=== PATIENT | male | born 1930 | race Caucasian/White ===

== ENCOUNTER 2021-09-09 12:09 | Inpatient (IN) ==
[2021-09-09] MEDS ORDERED: Naloxone 0.4 MG/ML INJ IVP PRN (14:59)
[2021-09-09] MEDS ORDERED: 0.9 % Sodium Chloride 1,000 ML IVC SCH (15:00)
[2021-09-09] MEDS ORDERED: Ipratropium/Albuterol Neb 3 ML IH PRN (15:02)
[2021-09-09] MEDS ORDERED: *HR* Heparin 5,000 UNIT/ML VIAL IVP PRN ×2 (16:24)
[2021-09-09] MEDS ORDERED: *HR* Heparin 5,000 UNIT/ML VIAL IVP ONE (16:24)
[2021-09-09] MEDS ORDERED: Perflutren Lipid Microsphere 1.3 ML in 0.9 % Sodium Chloride 8.7 ML IVP PRN ×2 (16:25→22:16)
[2021-09-09] MEDS ORDERED: Heparin 25,000UNIT/250ML 1/2NS 25,000 UNIT/250 ML IV.SOLN IVC SCH (16:30)
[2021-09-09 16:37] LABS: Adenovirus Not Detected (Not Detect); Bordetella Pertussis Not Detected (Not Detect); Chlamydophila pneumoniae Not Detected (Not Detect); Coronavirus 229E Not Detected (Not Detect); Coronavirus HKU1 Not Detected (Not Detect); Coronavirus NL63 Not Detected (Not Detect); Coronavirus OC43 Not Detected (Not Detect); Human Metapneumovirus Not Detected (Not Detect); Human Rhinovirus/Enterovirus Not Detected (Not Detect); Influenza A Subtype 2009 H1 Not Detected (Not Detect); Influenza B Not Detected (Not Detect); Mycoplasma pneumoniae Not Detected (Not Detect); Parainfluenza Virus 1 Not Detected (Not Detect); Parainfluenza Virus 2 Not Detected (Not Detect); Parainfluenza Virus 3 Not Detected (Not Detect); Parainfluenza Virus 4 DETECTED (Not Detect); Respiratory Syncytial Virus Not Detected (Not Detect); SARS-CoV-2 Not Detected (Not Detect)
[2021-09-09] MEDS: cefTRIAXone 1,000 MG in Water for inj. (sterile) 10 ML IVP SCH (17:36)
[2021-09-09] MEDS: Famotidine 20 MG TABLET PO SCH (17:36)
[2021-09-09] MEDS: Heparin 25,000 UNIT/250 ML 25,000 UNIT/250 ML IV.SOLN IVC SCH (17:37)
[2021-09-09 18:00] LABS: Hematocrit 32.9 % (37.5-50.1); Hemoglobin 10.1 g/dL (12.9-16.9); Mean Corpuscular HGB Conc 30.7 g/dL (31.6-35.5); Mean Corpuscular Hemoglobin 28.3 pg (28.0-33.3); Mean Corpuscular Volume 92.2 fL (83.0-100.0); Mean Platelet Volume 9.1 fL (9.4-12.4); Platelet Count 193 K/mcL (140-400); Red Blood Count 3.57 M/mcL (4.19-5.50); Red Cell Distribution Width 15.6 % (11.5-14.5); White Blood Count 15.5 K/mcL (4.3-11.1)
[2021-09-09 18:06] LABS: Heparin anti-factor XA UFH 0.64 IU/mL (0.30-0.70); INR 1.3; Prothrombin Time 14.2 Seconds (9.4-12.1)
[2021-09-09] MEDS ORDERED: *HR* HYDROcodone/Acet 10/325 mg TABLET PO PRN (19:52)
[2021-09-09] MEDS: *HR* FentaNYL PATCH 50 MCG PATCH TD SCH (20:46)
[2021-09-09] MEDS: QUEtiapine Fumarate 25 MG TABLET PO SCH (20:46)
[2021-09-09] MEDS: Sennosides 8.6 MG TABLET PO SCH (20:58)
[2021-09-09] MEDS: *HR* OxyCODONE/APAP 10/325 TABLET PO SCH (20:58)
[2021-09-09] MEDS ORDERED: Apixaban 2.5 MG TABLET PO SCH (21:00)
[2021-09-10] MEDS: *HR* Methadone 10 MG TABLET PO SCH ×4 (00:26→23:52)
[2021-09-10] MEDS: *HR* OxyCODONE/APAP 10/325 TABLET PO SCH ×4 (00:27→23:52)
[2021-09-10 00:44] LABS: Basophils % 0.1 %; Hematocrit 32.4 % (37.5-50.1); Hemoglobin 10.3 g/dL (12.9-16.9); Immature Granulocytes % 0.5 % (0-4); Lymphocytes # 1.5 K/mcL (0.6-4.6); Lymphocytes % 8.5 %; Mean Corpuscular HGB Conc 31.8 g/dL (31.6-35.5); Mean Corpuscular Hemoglobin 28.6 pg (28.0-33.3); Monocytes # 0.4 K/mcL (0.0-1.3); Monocytes % 2.4 %; Neutrophils # 15.4 K/mcL (1.6-8.9); Platelet Count 217 K/mcL (140-400); Red Cell Distribution Width 15.5 % (11.5-14.5); Segmented Neutrophils % 88.5 %; White Blood Count 17.3 K/mcL (4.3-11.1)
[2021-09-10 00:51] LABS: Alanine Aminotransferase 11 Units/L (7-52); Albumin 3.4 g/dL (3.5-5.7); Albumin/Globulin Ratio 1.2 (1.1-2.2); Alkaline Phosphatase 62 Units/L (34-104); Aspartate Amino Transferase 29 Units/L (13-39); BUN/Creatinine Ratio 20 (6-26); Bilirubin,Total 0.2 mg/dL (0.3-1.0); Blood Urea Nitrogen 22 mg/dL (8-23); Calcium 8.2 mg/dL (8.6-10.3); Carbon Dioxide 20 mEq/L (23-29); Chloride 108 mEq/L (98-107); Globulin 2.8 g/dL (2.4-3.5); Glucose 133 mg/dL (70-105); Magnesium 2.2 mg/dL (1.6-2.6); Osmolality,Calculated 291 (280-300); Phosphorous 2.8 mg/dL (2.7-4.5); Potassium 4.2 mEq/L (3.5-5.1); Sodium 138 mEq/L (136-145); Total Protein 6.2 g/dL (6.4-8.9); eGFR For African Americans > 60 (> 60); eGFR For Non-African Americans > 60 (> 60)
[2021-09-10] MEDS ORDERED: Regadenoson 0.4 MG/5 ML SYRINGE IVP ONE (06:28)
[2021-09-10] MEDS: *HR* Amiodarone 200 MG TABLET PO SCH (10:13)
[2021-09-10] MEDS: Furosemide 40 MG TABLET PO SCH (10:13)
[2021-09-10] MEDS: lisinopriL 20 MG TABLET PO SCH (10:13)
[2021-09-10] MEDS: atenoloL 25 MG TABLET PO SCH (10:13)
[2021-09-10] MEDS: cefTRIAXone 1,000 MG in Water for inj. (sterile) 10 ML IVP SCH (10:13)
[2021-09-10] MEDS: Famotidine 20 MG TABLET PO SCH ×2 (10:31→15:03)
[2021-09-10] MEDS: Sennosides 8.6 MG TABLET PO SCH ×2 (10:32→21:29)
[2021-09-10] MEDS ORDERED: Nitroglycerin 0.4 MG TAB.SUBL SL PRN (11:59)
[2021-09-10] MEDS ORDERED: cefTRIAXone 1,000 MG in Water for inj. (sterile) 10 ML IVP ONE (11:59)
[2021-09-10] MEDS: QUEtiapine Fumarate 25 MG TABLET PO SCH (21:29)
[2021-09-11] MEDS: Heparin 25,000 UNIT/250 ML 25,000 UNIT/250 ML IV.SOLN IVC SCH (03:48)
[2021-09-11] MEDS: Famotidine 20 MG TABLET PO SCH (07:47)
[2021-09-11] MEDS: *HR* Methadone 10 MG TABLET PO SCH ×2 (07:47→16:02)
[2021-09-11] MEDS: Furosemide 40 MG TABLET PO SCH (07:47)
[2021-09-11] MEDS: *HR* Amiodarone 200 MG TABLET PO SCH (07:47)
[2021-09-11] MEDS: Sennosides 8.6 MG TABLET PO SCH ×2 (07:47→20:23)
[2021-09-11] MEDS: *HR* OxyCODONE/APAP 10/325 TABLET PO SCH ×2 (07:48→16:02)
[2021-09-11] MEDS: atenoloL 25 MG TABLET PO SCH (07:48)
[2021-09-11] MEDS: lisinopriL 20 MG TABLET PO SCH (07:48)
[2021-09-11] MEDS ORDERED: Haloperidol Lactate 5 MG/ML VIAL IVP PRN (07:57)
[2021-09-11] MEDS: cefTRIAXone 2,000 MG in Water for inj. (sterile) 20 ML IVP SCH (09:54)
[2021-09-11 17:47] LABS: Basophils % 0.2 %; Eosinophils % 0.1 %; Hematocrit 30.4 % (37.5-50.1); Hemoglobin 9.6 g/dL (12.9-16.9); Immature Granulocytes % 0.5 % (0-4); Lymphocytes # 1.2 K/mcL (0.6-4.6); Lymphocytes % 12.6 %; Mean Corpuscular HGB Conc 31.6 g/dL (31.6-35.5); Mean Corpuscular Hemoglobin 27.4 pg (28.0-33.3); Mean Corpuscular Volume 86.9 fL (83.0-100.0); Mean Platelet Volume 9.3 fL (9.4-12.4); Monocytes # 1.1 K/mcL (0.0-1.3); Monocytes % 11.7 %; Neutrophils # 7.2 K/mcL (1.6-8.9); Platelet Count 218 K/mcL (140-400); Red Cell Distribution Width 15.9 % (11.5-14.5); Segmented Neutrophils % 74.9 %; White Blood Count 9.7 K/mcL (4.3-11.1)
[2021-09-11 18:06] LABS: BUN/Creatinine Ratio 22 (6-26); Blood Urea Nitrogen 22 mg/dL (8-23); Calcium 8.3 mg/dL (8.6-10.3); Carbon Dioxide 23 mEq/L (23-29); Chloride 102 mEq/L (98-107); Glucose 102 mg/dL (70-105); Osmolality,Calculated 280 (280-300); Potassium 3.5 mEq/L (3.5-5.1); Sodium 133 mEq/L (136-145); eGFR For African Americans > 60 (> 60); eGFR For Non-African Americans > 60 (> 60)
[2021-09-11] MEDS: QUEtiapine Fumarate 25 MG TABLET PO SCH (20:23)
[2021-09-11] MEDS: Apixaban 5 MG TABLET PO SCH (20:24)
[2021-09-12] MEDS: *HR* OxyCODONE/APAP 10/325 TABLET PO SCH ×4 (01:34→23:56)
[2021-09-12] MEDS: *HR* Methadone 10 MG TABLET PO SCH ×4 (01:34→23:56)
[2021-09-12 05:37] LABS: Hematocrit 28.1 % (37.5-50.1); Hemoglobin 8.8 g/dL (12.9-16.9); Mean Corpuscular HGB Conc 31.3 g/dL (31.6-35.5); Mean Corpuscular Hemoglobin 27.2 pg (28.0-33.3); Mean Corpuscular Volume 86.7 fL (83.0-100.0); Mean Platelet Volume 8.9 fL (9.4-12.4); Platelet Count 163 K/mcL (140-400); Red Blood Count 3.24 M/mcL (4.19-5.50); Red Cell Distribution Width 15.9 % (11.5-14.5); White Blood Count 6.1 K/mcL (4.3-11.1)
[2021-09-12 06:02] LABS: BUN/Creatinine Ratio 20 (6-26); Blood Urea Nitrogen 19 mg/dL (8-23); Calcium 8.2 mg/dL (8.6-10.3); Carbon Dioxide 25 mEq/L (23-29); Chloride 105 mEq/L (98-107); Glucose 99 mg/dL (70-105); Osmolality,Calculated 284 (280-300); Potassium 3.5 mEq/L (3.5-5.1); Sodium 136 mEq/L (136-145); eGFR For African Americans > 60 (> 60); eGFR For Non-African Americans > 60 (> 60)
[2021-09-12] MEDS: *HR* Amiodarone 200 MG TABLET PO SCH (08:28)
[2021-09-12] MEDS: Apixaban 5 MG TABLET PO SCH ×2 (08:32→20:58)
[2021-09-12] MEDS: Furosemide 40 MG TABLET PO SCH (08:33)
[2021-09-12] MEDS: Famotidine 20 MG TABLET PO SCH (08:33)
[2021-09-12] MEDS: lisinopriL 20 MG TABLET PO SCH (08:34)
[2021-09-12] MEDS: Sennosides 8.6 MG TABLET PO SCH ×2 (08:34→20:58)
[2021-09-12] MEDS: cefTRIAXone 2,000 MG in Water for inj. (sterile) 20 ML IVP SCH (08:36)
[2021-09-12] MEDS ORDERED: Metoprolol XL (24 HR) Succ 25 MG TAB.ER.24H PO SCH (09:00)
[2021-09-12] MEDS ORDERED: Metoprolol XL (24 HR) Succ 25 MG TAB.ER.24H PO ONE (10:14)
[2021-09-12] MEDS: QUEtiapine Fumarate 25 MG TABLET PO SCH (20:58)
[2021-09-12] MEDS ORDERED: Acetaminophen 325 MG TABLET PO PRN (21:00)
[2021-09-12] MEDS: *HR* FentaNYL PATCH 50 MCG PATCH TD SCH (22:16)
[2021-09-13] MEDS ORDERED: Metoprolol XL (24 HR) Succ 50 MG TAB.ER.24H PO SCH (09:00)
[2021-09-13] MEDS: Sennosides 8.6 MG TABLET PO SCH (09:31)
[2021-09-13] MEDS: Furosemide 40 MG TABLET PO SCH (09:33)
[2021-09-13] MEDS: *HR* Methadone 10 MG TABLET PO SCH (09:33)
[2021-09-13] MEDS: *HR* OxyCODONE/APAP 10/325 TABLET PO SCH (09:33)
[2021-09-13] MEDS: Famotidine 20 MG TABLET PO SCH (09:34)
[2021-09-13] MEDS: lisinopriL 20 MG TABLET PO SCH (09:34)
[2021-09-13] MEDS: Apixaban 5 MG TABLET PO SCH (09:34)
[2021-09-13] MEDS: *HR* Amiodarone 200 MG TABLET PO SCH (09:35)
[2021-09-13] MEDS ORDERED: Isosorbide MONOnitrate (24 HR) 30 MG TAB.ER.24H PO SCH (10:45)
[2021-09-13 11:01] VITALS: BP 115/46; PULSE 66; TEMP 98.3; O2SAT 97
== END 2021-09-13 11:41 | disposition hospice, home (50) | DRG 871 ==
LOC: 3BNU → SUATTDRO 14:26 → 2NENU 09-10 15:26
PROVIDERS: ADMIT Internal Medicine; ATTEND Internal Medicine